=== PATIENT | female | born 1985 | race Caucasian/White ===

== ENCOUNTER 2024-06-22 08:46 | Outpatient (CLI) | payer BC, SELFPAY ==
--- NOTE | 2024-06-22 08:56 | US_ITS ---
PROCEDURE: US TRANSVAGINAL CLINICAL INDICATION: dysmenorrhea COMPARISON: No exams were available for comparison FINDINGS: Transvaginal sonographic images of the pelvis were obtained. UTERUS: 6.7 cm x 5.1cmx 2.7 cm anteverted with a combined endometrial thickness of 7.3mm. Homogeneous appearance of the endometrium. There is a small nabothian cyst in the cervix. LEFT OVARY: [id number] with a volume of 5.8ml. There is a follicle measuring 0.8 cm x 0.7 cm x 0.6 cm. There are multiple small peripheral follicles. RIGHT OVARY: 3cmx [id number] with a volume of 4.6ml. There are multiple small peripheral follicles. Both ovaries are seen and appear normal. Doppler flow to both ovaries are seen. There is no fluid in the cul-de-sac. IMPRESSION: 1. Anteverted uterus normal in shape and size. The endometrium is homogeneous and measures 7.3 mm. 2. Both ovaries are seen and appear normal. There are multiple small peripheral follicles. 3. No fluid in the cul-de-sac. Dictated by: Gennaro Silver MD 06/22/2024 10:35 Gennaro iSlver MD in [place] 06/22/2024 10:35
== END 2024-06-22 23:59 | disposition home or self-care (01) ==
LOC: RAD 08:49
PROVIDERS: PCP Emergency Medicine; Visit Provider Nurse Practitioner Obstetrics & Gynecology
DX: N94.6 Dysmenorrhea, unspecified (principal)
CPT/HCPCS: 76830

== ENCOUNTER 2024-06-29 11:40 | Outpatient (CLI) | payer BC, SELFPAY ==
[2024-06-29 13:28] LABS: HCG,Quantitative 165 mIU/ml (0-5.42)
[2024-06-30 11:19] LABS: Progesterone 24.9 ng/mL (.)
== END 2024-06-29 23:59 | disposition home or self-care (01) ==
LOC: LAB 11:41
PROVIDERS: PCP Emergency Medicine; Visit Provider Obstetrics & Gynecology
DX: Z34.90 Encounter for supervision of normal pregnancy, unspecified, unspecified trimester (principal)
CPT/HCPCS: 36415; 84144; 84702

== ENCOUNTER 2024-07-01 09:34 | Outpatient (CLI) | payer BC, SELFPAY ==
[2024-07-01 10:45] LABS: HCG,Quantitative 395 mIU/ml (0-5.42)
== END 2024-07-01 23:59 | disposition home or self-care (01) ==
LOC: LAB 09:34
PROVIDERS: PCP Emergency Medicine; Visit Provider Obstetrics & Gynecology
DX: Z34.90 Encounter for supervision of normal pregnancy, unspecified, unspecified trimester (principal)
CPT/HCPCS: 36415; 84702

== ENCOUNTER 2024-07-22 13:52 | Outpatient (CLI) | payer BC, SELFPAY ==
[2024-07-22 14:40] LABS: Basophils % 0.5 % (0.1-2.0); Eosinophils # 0.2 K/mm3 (0.0-0.4); Eosinophils % 2.8 % (0.1-12.0); Hematocrit 38.5 % (37.0-47.0); Hemoglobin 12.5 g/dL (12.2-16.2); Lymphocytes # 1.5 K/mm3 (0.7-4.5); Lymphocytes % 24.9 % (10-50); Mean Corpuscular HGB Conc 32.5 g/dL (31.8-35.4); Mean Corpuscular Hemoglobin 32.2 pg (27.0-31.2); Mean Corpuscular Volume 98.9 fl (81-99); Mean Platelet Volume 8.7 fl (7.4-10.4); Monocytes # 0.4 K/mm3 (0.1-1.0); Monocytes % 5.9 % (1.7-9.3); Neutrophils % 65.9 % (37.0-80.0); Platelet Count 240 K/mm3 (142-424); Red Blood Count 3.89 M/mm3 (4.20-5.40); Red Cell Distribution Width 12.4 % (11.5-17.5); White Blood Count 6.1 K/mm3 (4.8-10.8)
[2024-07-23 13:19] LABS: HIV (1&2) Antibody Rapid NONREACTIVE (NONREACTIVE)
[2024-07-24 08:15] LABS: HCV Ab Non Reactive (Non Reactive); Hepatitis B Surface Antigen Negative (Negative)
[2024-07-24 08:20] LABS: Rubella Antibodies, IgG 4.64 index (Immune >0.99)
[2024-07-24 12:14] LABS: Rapid Plasma Reagin Ab Titer Non Reactive titer (NonRea<1:1)
[2024-07-25 07:52] LABS: Neisseria gonorrhoeae, NAA Negative (Negative)
== END 2024-07-22 23:59 | disposition home or self-care (01) ==
LOC: LAB 13:53
PROVIDERS: Visit Provider Obstetrics & Gynecology
DX: Z34.81 Encounter for supervision of other normal pregnancy, first trimester (principal)
CPT/HCPCS: 36415; 85025; 86593; 86762; 86803; 86850; 87086; 87340; 87389; 87491; 87591

== ENCOUNTER 2024-10-26 12:59 | Outpatient (CLI) | payer BC, SELFPAY ==
--- NOTE | 2024-10-26 13:07 | US_ITS ---
PROCEDURE: US OB >= 14 WEEKS FETUS CLINICAL INDICATION: 20 week anatomy COMPARISON: US US TRANSVAGINAL from 06/22/2024 FINDINGS: Transabdominal sonographic images of the pelvis were obtained. From her established due date she is 20 weeks 5 days. Single viable intrauterine gestation. Breech position. Placenta: Posterior and right laterally wrapped placenta grade 1. There is an average amount of fluid. The cervix appears satisfactory. Closed and measuring 4.67 cm in length. Complete survey performed and was unremarkable on the submitted images as in PACS. No discrete anomalies identified on survey imaging by technologist. Active fetus. Three-vessel cord with satisfactory umbilical cord insertion. 4- chamber heart noted. Situs, aortic arch, LVOT, RVOT, three-vessel view appear normal. Survey of brain & ventricles Unremarkable. Cerebellum, thalamus, choroid plexus, cisterna magna appear normal. Face and neck survey unremarkable. Profile, nasion, lips and nose appeared normal. Diaphragm and chest views unremarkable. Abdomen: Both kidneys noted and unremarkable. Stomach and bladder noted and satisfactory. Spine: Survey of the spine satisfactory with no anomalies identified nor imaged. Cervical, thoracic, lower spine appear normal. Both arms and legs noted. Amniotic Fluid: Adequate. MVP 4.48 cm. Measurements: Average ultrasound age 20weeks 6days. Estimated due date by ultrasound age 0403/09/2025. Estimated weight 353g BPD = 21weeks 3days HC = 21weeks 0 days AC = 20weeks 3days FL = 20weeks 3days Growth Percentile= 30 Heart Rate = 139bpm Cerebellum = 19weeks 3days Humerus = 21weeks 1day HC/AC is 1.23 FL/BPD is 0.65 FL/AC is 0.22 IMPRESSION: 1. Viable fetus in the breech presentation with the right laterally wrapped posterior placenta grade 1. 2. The fluid is within normal limits MVP 4.48 cm. 3. Anatomical scan appears normal. 4. biometry is consistent with the dates. Dictated by: Gennaro Silver MD 10/26/2024 16:33 Gennaro Silver MD in [place] 10/26/2024 16:33
== END 2024-10-26 23:59 | disposition home or self-care (01) ==
LOC: RAD 13:00
PROVIDERS: PCP Emergency Medicine; Visit Provider Obstetrics & Gynecology
DX: O09.522 Supervision of elderly multigravida, second trimester (principal); Z3A.20 20 weeks gestation of pregnancy
CPT/HCPCS: 76805

== ENCOUNTER 2024-12-16 14:07 | Outpatient (CLI) | payer OTHER, SELFPAY ==
[2024-12-16 15:26] LABS: Basophils % 0.3 % (0.1-2.0); Eosinophils # 0.1 K/mm3 (0.0-0.4); Eosinophils % 1.2 % (0.1-12.0); Hemoglobin 10.9 g/dL (12.2-16.2); Lymphocytes # 1.2 K/mm3 (0.7-4.5); Lymphocytes % 17.4 % (10-50); Mean Corpuscular HGB Conc 34.1 g/dL (31.8-35.4); Mean Corpuscular Hemoglobin 32.5 pg (27.0-31.2); Mean Corpuscular Volume 95.5 fl (81-99); Mean Platelet Volume 9.5 fl (7.4-10.4); Monocytes # 0.5 K/mm3 (0.1-1.0); Monocytes % 7.4 % (1.7-9.3); Neutrophils % 72.5 % (37.0-80.0); Platelet Count 236 K/mm3 (142-424); Red Blood Count 3.35 M/mm3 (4.20-5.40); Red Cell Distribution Width 12.2 % (11.5-17.5); White Blood Count 6.9 K/mm3 (4.8-10.8)
[2024-12-16 15:38] LABS: Glucose 1 Hour 158 mg/dL (74-100)
[2024-12-16 23:40] LABS: RPR W/RFX Titers Nonreactive (Nonreactive)
== END 2024-12-16 23:59 | disposition home or self-care (01) ==
LOC: LAB 14:09
PROVIDERS: PCP Emergency Medicine; Visit Provider Obstetrics & Gynecology
DX: Z34.90 Encounter for supervision of normal pregnancy, unspecified, unspecified trimester (principal)
CPT/HCPCS: 36415; 82947; 85025; 86592

== ENCOUNTER 2024-12-18 09:13 | Outpatient (CLI) | payer OTHER, SELFPAY ==
[2024-12-18 10:54] LABS: Glucose,Fasting 82 mg/dl (74-100)
[2024-12-18 11:05] LABS: Glucose 1 Hour 123 mg/dL (74-100)
[2024-12-18 12:09] LABS: Glucose 2 Hour 90 mg/dL (74-100)
[2024-12-18 13:12] LABS: Glucose 3 Hour 92 mg/dL (74-100)
== END 2024-12-18 23:59 | disposition home or self-care (01) ==
LOC: LAB 09:14
PROVIDERS: PCP Emergency Medicine; Visit Provider Obstetrics & Gynecology
DX: E74.39 Other disorders of intestinal carbohydrate absorption (principal); O09.529 Supervision of elderly multigravida, unspecified trimester
CPT/HCPCS: 36415; 82951

== ENCOUNTER 2024-12-22 14:26 | Outpatient (CLI) | payer OTHER, SELFPAY ==
[2024-12-22 14:30] VITALS: BP 111/71; PULSE 80; RESP 20; TEMP 37.1; O2SAT 98; BMI 25.2
[2024-12-22 14:34] VITALS: BMI 25.4
[2024-12-22 14:44] LABS: Microscopic, Urine URINE MICROSCOPIC (MICROSCOPIC)
[2024-12-22 14:45] LABS: Appearance,Urine CLEAR (Clear); Bilirubin,Urine Negative (Negative); Blood, Urine 2+ (Negative); Color,Urine YELLOW (Yellow); Glucose,Urine (UA) Negative (Negative); Ketones,Urine Negative (Negative); Leukocyte Esterase,Urine Negative (Negative); Nitrate,Urine Negative (Negative); PH,Urine 7.5 (5.0-8.5); Protein,Urine Negative (Negative); Urobilinogen,Urine 0.2 EU/dl (0.2)
[2024-12-22 14:52] LABS: Bacteria,Urine Trace /lpf
[2024-12-22 14:57] LABS: Amphetamine/Metha Screen,Urine Negative ng/ml (<1000)
[2024-12-22 14:58] LABS: Barbiturates Screen,Urine Negative ng/ml (<200)
[2024-12-22 14:59] LABS: Benzodiazepines Screen,Urine Negative ng/ml (<200); Cannabinoid Screen,Urine Negative ng/ml (<50)
[2024-12-22 15:00] LABS: Cocaine Screen,Urine Negative ng/ml (<300)
[2024-12-22 15:01] LABS: Methadone Screen,Urine Negative ng/ml (<300); Opiate Screen,Urine Negative ng/ml (<300)
[2024-12-22 15:02] LABS: Phencyclidine Screen,Urine Negative ng/ml (<25)
--- NOTE | 2024-12-22 15:05 | US_ITS ---
PROCEDURE: US OB BIOPHYSICAL PROFILE CLINICAL INDICATION: bleeding at 29 weeks COMPARISON: US US TRANSVAGINAL from 06/22/2024 US US OB >= 14 WEEKS FETUS from 10/26/2024 FINDINGS: Transabdominal sonographic images of the uterus were obtained. From her established due date she is 29weeks. The following parameters are obtained: Viable Fetus in the breech presentation initially then cephalic presentation with a right lateral posterior placenta grade 1. No obvious abruption. Cervix measures 4.14-4.40 cm. No obvious reason for her vaginal bleeding. Measurements: heart Rate = 140bpm Amniotic fluid index: 12.27cm, MVP 4.14 cm Qualitative AFV:2 Breathing movements: 2 Gross Body Movements: 2 Tone: 2 Biophysical profile score: 8 No obvious anomalies evident.Kidneys, profile, stomach, bladder, four-chamber heart, three-vessel cord appear normal. IMPRESSION: 1. Viable fetus in the breech then cephalic presentation with a right lateral posterior placenta grade 1. No obvious abruption. 2. Cervix measures 4.14-4.40 cm. 3. The fluid is within normal limits with amniotic fluid index 12.27 cm, MVP 4.14 cm. 4. Biophysical profile is 8/8 with good breathing movement and movement seen. 5. Limited anatomical scan appears normal. Dictated by: Gennaro Silver MD 12/22/2024 16:35 Gennaro Silver MD in [place] 12/22/2024 16:35
== END 2024-12-22 16:50 | disposition home or self-care (01) ==
LOC: OBOUT 14:28 → OB 14:28
PROVIDERS: Visit Provider Nurse Practitioner Obstetrics & Gynecology
DX: O46.93 Antepartum hemorrhage, unspecified, third trimester (principal); Z3A.29 29 weeks gestation of pregnancy
CPT/HCPCS: 76819; 80307; 81001; G0463

== ENCOUNTER 2025-01-21 14:02 | Outpatient (CLI) | payer OTHER, SELFPAY ==
--- NOTE | 2025-01-21 14:03 | US_ITS ---
PROCEDURE: US OB BIOPHYSICAL PROFILE CLINICAL INDICATION: BPP/Growth secondary to AMA COMPARISON: US US OB >= 14 WEEKS FETUS from 10/26/2024 US US OB BIOPHYSICAL PROFILE from 12/22/2024 FINDINGS: Transabdominal sonographic images of the uterus were obtained. From her established due date she is 33weeks 2days. The following parameters are obtained: Viable Fetus in the breech presentation with a right lateral placenta grade 2. Average ultrasound age is 31weeks 6days Estimated weight 1,804g The cervix measures 3.87 cm-4.58 cm. Measurements: heart Rate = 138bpm BPD = 31weeks 5days, 8 percentile HC = 32weeks 3days, 4 percentile AC = 31weeks 3days, 8 percentile FL = 31weeks 5days, 7 percentile HC/AC is 1.07 FL/BPD is 0.77 FL/AC is 0.22 7 percentile Amniotic fluid index: 10.51cm, MVP 3.81 cm. Qualitative AFV:2 Breathing movements: 2 Gross Body Movements: 2 Tone: 2 Biophysical profile score: 8 Doppler evaluation of the umbilical artery: SD ratio: 2.79 Resistive index: 0.64 No obvious anomalies evident.Kidneys, profile, bladder, stomach, four-chamber heart, Three-vessel cord appear normal. IMPRESSION: 1. Viable fetus in the breech presentation with a right lateral placenta grade 2. 2. The fluid is within normal limits with an amniotic fluid index 10.51 cm, MVP 3.1 cm. 3. Biophysical profile is 8/8 with good breathing movement and movement seen. 4. SD ratio is normal. 5. There has been a falling off of the growth with the fetus currently measuring 7th percentile. 6. Limited anatomical scan appears normal. Dictated by: Gennaro Silver MD 01/21/2025 19:28 Gennaro Silver MD in [place] 01/21/2025 19:28
== END 2025-01-21 23:59 | disposition home or self-care (01) ==
PROVIDERS: Visit Provider Obstetrics & Gynecology
DX: O09.523 Supervision of elderly multigravida, third trimester (principal); Z87.59 Personal history of other complications of pregnancy, childbirth and the puerperium; O99.343 Other mental disorders complicating pregnancy, third trimester; F41.9 Anxiety disorder, unspecified; O36.5930 Maternal care for other known or suspected poor fetal growth, third trimester, not applicable or unspecified; Z3A.33 33 weeks gestation of pregnancy
CPT/HCPCS: 76816; 76819

== ENCOUNTER 2025-02-05 14:00 | Outpatient (CLI) | payer OTHER, SELFPAY | END 2025-02-05 23:59 | disposition home or self-care (01) | LOC: LAB.DROPOF 02-06 11:12 | PROVIDERS: PCP Obstetrics & Gynecology; Visit Provider Obstetrics & Gynecology | DX: O36.5930 Maternal care for other known or suspected poor fetal growth, third trimester, not applicable or unspecified (principal); Z3A.35 35 weeks gestation of pregnancy | CPT/HCPCS: 86403 ==

== ENCOUNTER 2025-02-09 08:55 | Outpatient (CLI) | payer OTHER, SELFPAY ==
--- NOTE | 2025-02-09 09:09 | US_ITS ---
PROCEDURE: US OB BIOPHYSICAL PROFILE CLINICAL INDICATION: BPP, SD Ratio with GORDON Advanced maternal age COMPARISON: US US TRANSVAGINAL from 06/22/2024 US US OB >= 14 WEEKS FETUS from 10/26/2024 US US OB BIOPHYSICAL PROFILE from 12/22/2024 US US OB BIOPHYSICAL PROFILE from 01/21/2025 US US OB FOLLOW UP from 02/09/2025 FINDINGS: Transabdominal sonographic images of the uterus were obtained. From her established due date she is 36weeks 0 days. The following parameters are obtained: Viable Fetus in the breech presentation with right laterally wrapped placenta grade 2. Cervix measures 3.46 cm Measurements: heart Rate = 140bpm Amniotic fluid index: 12.95cm, MVP 3.95 cm. Qualitative AFV:2 Breathing movements: 2 Gross Body Movements: 2 Tone: 2 Biophysical profile score: 8 Doppler evaluation of the umbilical artery: SD ratio: 1.77-2.09 Resistive index: 0.44 No obvious anomalies evident.Kidneys, stomach, bladder, four-chamber heart, three-vessel cord appear normal. IMPRESSION: 1. Viable fetus in the breech presentation with a right laterally wrapped placenta grade 2. 2. The fluid is within normal limits with amniotic fluid index 12.95 cm, MVP 3.95 cm. 3. Biophysical profile is 8/8 with good breathing movement and movement seen. 4. SD ratio normal 1.77-2.09. 5. Limited anatomical scan appears normal. Dictated by: Gennaro Silver MD 02/09/2025 10:52 Gennaro Silver MD in [place] 02/09/2025 10:52
== END 2025-02-09 23:59 | disposition home or self-care (01) ==
LOC: RAD 08:56
PROVIDERS: PCP Emergency Medicine; Visit Provider Obstetrics & Gynecology
DX: O09.523 Supervision of elderly multigravida, third trimester (principal); O36.5930 Maternal care for other known or suspected poor fetal growth, third trimester, not applicable or unspecified; Z3A.36 36 weeks gestation of pregnancy; Z87.59 Personal history of other complications of pregnancy, childbirth and the puerperium
CPT/HCPCS: 76819; 76820

== ENCOUNTER 2025-02-18 14:47 | Outpatient (CLI) | payer OTHER, SELFPAY ==
--- NOTE | 2025-02-18 15:00 | US_ITS ---
PROCEDURE: US OB BIOPHYSICAL PROFILE CLINICAL INDICATION: Needs on 02/18/25 Symmetric IGUR/AMA COMPARISON: US US OB >= 14 WEEKS FETUS from 10/26/2024 US US OB BIOPHYSICAL PROFILE from 12/22/2024 US US OB BIOPHYSICAL PROFILE from 01/21/2025 US US OB BIOPHYSICAL PROFILE from 02/09/2025 FINDINGS: Transabdominal sonographic images of the uterus were obtained. From her established due date she is 37weeks 2days. The following parameters are obtained: Viable Fetus in the breech presentation with a right lateral placenta grade 2. Average ultrasound age is 35weeks 1day Estimated weight 2,711g, 6 lb 0 oz Cervix measures 2.98 cm-3.11 cm when measured transvaginally Measurements: heart Rate = 132bpm BPD = 34weeks 3days, 4 percentile HC = 34weeks 5days, <2 percentile AC = 36weeks 4days, 43 percentile FL = 34weeks 4day, 3 percentile s HC/AC is 0.95 FL/BPD is 0.79 FL/AC is 0.21 17 percentile Amniotic fluid index: 12.97cm, MVP 5.29 cm Qualitative AFV:2 Breathing movements: 2 Gross Body Movements: 2 Tone: 2 Biophysical profile score: 8 Doppler evaluation of the umbilical artery: SD ratio: 2.03-2.82. Resistive index: 0.51 No obvious anomalies evident.Kidneys, profile, stomach, bladder, four-chamber heart, three-vessel cord appear normal. IMPRESSION: 1. Viable fetus in the breech presentation with a right lateral placenta grade 2. 2. The fluid is within normal limits with an amniotic fluid index 12.97 cm, MVP 5.29 cm. 3. Biophysical profile is 8/8 with good breathing movement and movement seen. 4. There has been good interval growth with the fetus currently 17th percentile. 5. The head and femur length were small for gestational age. The abdominal circumference is normal. Somewhat difficult exam to get proper measurements due to position. 6. SD ratio is normal at 2.03-2.82. 7. Limited anatomical scan appears normal. Dictated by: Gennaro Silver MD 02/18/2025 15:56 Gennaro Silver MD in [place] 02/18/2025 15:56
--- OUTSIDE RECORDS SUMMARY | 2025-02-18 23:37 | XMS_ITS ---
Author Organization Unknown Plan of Treatment Description Planned Activity Planned Timing Tariq Alvarenga has registered and consented to medical care with [employer] s virtual maternal- care program, through benefits provided by their employer or health plan. Our practice care model is designed to support patients and their primary care team in optimizing maternal and health by reducing risk factors, addressing care gaps, and expanding equitable access to care.Our multidisciplinary team of certified healthcare professionals include an experienced team of maternal- care registered nurses, dietitians, specialists, mental health specialists, certified nurse midwives, nurse practitioners, physician associates, neonatologists, and BACK HAND physicians. We offer comprehensive risk reducing services including 24/7 urgent care, medical education, mental health support/therapy, and consultation.[employer] will reach out to Tariq at least monthly to check-in on their health throughout the duration of their period. We can be contacted by phone at [phone], or by email at [email or web address] with any questions or concerns. Patient Care team information Name Category Status Period Participants - - Proposed period not known - - - Proposed period not known -
== END 2025-02-18 23:59 | disposition home or self-care (01) ==
LOC: RAD 14:48
PROVIDERS: PCP Obstetrics & Gynecology; Visit Provider Obstetrics & Gynecology
DX: O09.523 Supervision of elderly multigravida, third trimester (principal); O36.5930 Maternal care for other known or suspected poor fetal growth, third trimester, not applicable or unspecified; O99.343 Other mental disorders complicating pregnancy, third trimester; F41.9 Anxiety disorder, unspecified; Z3A.37 37 weeks gestation of pregnancy
CPT/HCPCS: 76816; 76819; 76820

== ENCOUNTER 2025-02-25 13:05 | Outpatient (CLI) | payer OTHER, SELFPAY ==
--- NOTE | 2025-02-25 13:00 | US_ITS ---
PROCEDURE: US OB BIOPHYSICAL PROFILE CLINICAL INDICATION: Needs 02/25/25 for IGUR COMPARISON: No exams were available for comparison FINDINGS: Transabdominal sonographic images of the uterus were obtained. From her established due date she is 38weeks 2days. The following parameters are obtained: Viable Fetus in the breech presentation with a right lateral placenta grade 2-3. The cervix measures 3.0 cm Measurements: heart Rate = 130bpm Amniotic fluid index: 21.62cm, MVP 8.34 cm Qualitative AFV:2 Breathing movements: 2 Gross Body Movements: 2 Tone: 2 Biophysical profile score: 8 Doppler evaluation of the umbilical artery: SD ratio: 1.95-2.14 Resistive index: 0.49 No obvious anomalies evident.Kidneys, stomach, bladder, four-chamber heart, three-vessel cord appear normal. IMPRESSION: 1. Viable fetus in the BREECH presentation with a right lateral placenta grade 2-3. 2. The amniotic fluid index is 21.62 cm. MVP is 8.34 cm which meets the criteria for mild polyhydramnios. 3. Biophysical profile is 8/8 with good breathing movement and movement seen. 4. SD ratio is normal 1.95-2.14. 5. Limited anatomical scan appears normal. Dictated by: Gennaro Silver MD 02/25/2025 17:39 Gennaro Silver MD in [place] 02/25/2025 17:39
--- OUTSIDE RECORDS SUMMARY | 2025-02-25 13:10 | XMS_ITS ---
Author Organization Unknown Plan of Treatment Description Planned Activity Planned Timing Tariq Alvarenga has registered and consented to medical care with [employer] s virtual maternal- care program, through benefits [...] midwives, nurse practitioners, physician associates, neonatologists, and TREER physicians. We offer comprehensive risk reducing services including 24/7 urgent care, medical education, mental health support/therapy, and consultation.[employer] will reach out to Tariq at least monthly to check-in on their health throughout the duration of their period. We can be contacted by phone at [phone], or by email at [email or web address] with any questions or concerns. Patient Care team information Name Category Status Period Participants - - Proposed period not known - - - Proposed period not known -
== END 2025-02-25 23:59 | disposition home or self-care (01) ==
LOC: RAD 13:06
PROVIDERS: PCP Emergency Medicine; Visit Provider Obstetrics & Gynecology
DX: O36.5990 Maternal care for other known or suspected poor fetal growth, unspecified trimester, not applicable or unspecified (principal)
CPT/HCPCS: 76819; 76820

== ENCOUNTER 2025-03-05 05:17 | Inpatient (IN) | payer OTHER, SELFPAY ==
[2025-03-05] VITALS (7 sets, daily range): BP systolic 111–124; BP diastolic 56–77; PULSE 59–75; RESP 14–18; TEMP 36.1–36.6; O2SAT 98–100; BMI 27.5
--- OUTSIDE RECORDS SUMMARY | 2025-03-05 05:19 | XMS_ITS ---
Author Organization Unknown Plan of Treatment Description Planned Activity Planned Timing Tariq Alvarenga has registered and consented to medical care with [employer] s virtual maternal- care program, through benefits [...] midwives, nurse practitioners, physician associates, neonatologists, and MACHINE CHAIN MAKER physicians. We offer comprehensive risk reducing services including 24/7 urgent care, medical education, mental health support/therapy, and consultation.[employer] will reach out to Tariq at least monthly to check-in on their health throughout the duration of their period. We can be contacted by phone at [phone], or by email at [email or web address] with any questions or concerns. Patient Care team information Name Category Status Period Participants - - Proposed period not known - - - Proposed period not known -
[2025-03-05] MEDS: LACTATED RINGERS 1000ML 1,000 ML 250 ML IV (05:50)
[2025-03-05 06:14] LABS: Microscopic, Urine URINE MICROSCOPIC (MICROSCOPIC)
[2025-03-05 06:18] LABS: Basophils % 0.3 % (0.1-2.0); Eosinophils # 0.1 Kmm3 (0.0-0.4); Eosinophils % 1.2 % (0.1-12.0); Hematocrit 34.4 % (37.0-47.0); Hemoglobin 11.6 g/dL (12.2-16.2); Lymphocytes # 1.6 K/mm3 (0.7-4.5); Mean Corpuscular HGB Conc 33.7 g/dL (31.8-35.4); Mean Corpuscular Volume 94.8 fl (81-99); Mean Platelet Volume 10.1 fl (7.4-10.4); Monocytes # 0.6 K/mm3 (0.1-1.0); Monocytes % 10.7 % (1.7-9.3); Neutrophils # 3.5 K/mm3 (1.8-7.8); Neutrophils % 60.1 % (37.0-80.0); Nucleated Red Blood Cells # 0 10^3/uL; Nucleated Red Blood Cells % 0 %; Platelet Count 241 K/mm3 (142-424); Red Blood Count 3.63 M/mm3 (4.20-5.40); Red Cell Distribution Width 13.2 % (11.5-17.5); Red Cell Distribution Width-SD 45.5 fL; White Blood Count 5.8 K/mm3 (4.8-10.8)
[2025-03-05 06:28] LABS: Chloride 109 mmol/L (98-107)
[2025-03-05 06:28] LABS: Appearance,Urine CLEAR (Clear); Bilirubin,Urine Negative (Negative); Blood, Urine Negative (Negative); Color,Urine YELLOW (Yellow); Glucose,Urine (UA) Negative (Negative); Ketones,Urine Negative (Negative); Leukocyte Esterase,Urine Negative (Negative); Nitrate,Urine Negative (Negative); Protein,Urine Negative (Negative); Specific Gravity, Urine 1.025 (1.005-1.030); Urobilinogen,Urine 0.2 EU/dl (0.2)
[2025-03-05 06:29] LABS: Albumin Level 3.2 g/dl (3.5-5.0); Potassium 3.9 mmoL/L (3.5-5.1); Sodium 133 mmol/L (136-145)
[2025-03-05 06:31] LABS: Blood Urea Nitrogen 10 mg/dl (7-17); Creatinine Clearance Estimated 138 mL/min (50-200); Estimated Glomerular Filt Rate 93 ml/min (>60); GFR (African American) 112 ML/MIN (>60)
[2025-03-05 06:32] LABS: Alanine Aminotransferase 20 U/L (12-78); Albumin/Globulin Ratio 0.9 (1.1-1.8); Alkaline Phosphatase 181 U/L (38-126); Anion Gap 6.9 mEq/L (5-15); Aspartate Amino Transferase 33 U/L (14-36); Bilirubin,Total 0.3 mg/dl (0.2-1.3); Calcium 8.5 mg/dl (8.4-10.2); Carbon Dioxide 21 mmol/L (22.0-30.0); Globulin 3.4 g/dL (1.3-3.2); Glucose 74 mg/dl (74-100); Total Protein,Serum 6.6 g/dl (6.3-8.2)
[2025-03-05 07:14] LABS: Bacteria,Urine Trace /lpf
[2025-03-05] MEDS: CEFAZOLIN SODIUM 2 GM in 0.9 % SODIUM CHLORIDE 100 ML IV ×3 (07:16→23:22)
--- NOTE | 2025-03-05 07:17 | P.HP_ITS ---
OB - H&P: HPI Antepartum History of Present Illness Chief complaint: Scheduled primary History of present illness: Ms Tariq Alvarenga is a 39 yo at 39w2d who presents to [facility] L&D for scheduled primary secondary to breech presentation. She has had good care. Baby is active. History of Present Criteria for establishing EDC:: LMP confirmed by 1st trimester US care: good care Ultrasounds: normal mid trimester US Obstetrical complications: other (Advanced maternal age) Labs Blood type: O (+) positive Rubella: immune RPR/VDRL: nonreactive HBsAG: negative [facility] Disclaimer: The information contained in this section may have been updated after the patient was seen, as this information can be updated by other users. Medical History (Updated 03/01/25 @ 12:03 by Lina Rodas DO) Breech presentation Anxiety during , antepartum AMA (advanced maternal age) multigravida 35+ Family history of breast cancer in first degree relative History of miscarriage Dysmenorrhea Hx of migraines History of depression History of anxiety Surgical History No significant past surgical history Family History Other Cancer Coronary artery disease Social History Smoking Status: Never smoker alcohol intake: former current occupational status: employed Travel in the last 8 weeks: None Have you lived/traveled outside US in past 30 days?: No Contact w/someone who lives/traveled outside US past 30 days?: No Exposure to someone with infectious disease in past 14 days?: No Do you have a fever (greater than 100.4 F or 38 C)?: No Have you tested positive for COVID-19: No Exposed to someone with COVID-19 in past 14 days?: No Do you have a sore throat?: No Do you have a cough?: No Do you have any weakness?: No Do you have any diarrhea?: No Are you experiencing any unusual bleeding?: No Do you have any muscle aches/pain?: No Do you have any abdominal pain?: No Are you experiencing loss of taste or smell?: No Other Medical History Have you received the Flu Vaccine for this season: No Have you received the Pneumonia Vaccine: No Review of Systems Review of Systems Review of systems:: pertinent systems reviewed and negative unless documented below Meds Home Medications and Allergies Home Medications ?Medication ?Instructions ?Recorded ?Confirmed ?Type escitalopram oxalate 10 mg tablet 10 mg PO DAILY 06/18/24 03/01/25 History sumatriptan succinate 50 mg tablet See Rx Instructions PO .COMPLEX 06/18/24 03/01/25 History (Imitrex) vits no.126-ferrous fum 1 tab PO DAILY 07/22/24 03/01/25 History 28 mg iron-folic acid 800 mcg tablet (Classic ) New Prescriptions to Start Prescriptions: Allergies Allergy/AdvReac Type Severity Reaction Status Date / Time No Known Allergies Allergy Verified 03/01/25 10:08 OB - H&P: Exam Physical Exam Vital signs: Temp Pulse Resp BP Pulse Ox O2 Del Method 97.9 F 75 16 112/77 99 Room Air 03/05/25 06:05 03/05/25 06:05 03/05/25 06:05 03/05/25 06:05 03/05/25 06:05 03/05/25 06:05 Constitutional no acute distress and cooperative Routine HEENT Exam Head: Present normocephalic and atraumatic Eye: Absent conjunctivae pink ENT: Present mucous membranes moist Routine Neck Exam Present full ROM Routine Respiratory Exam Present CTA bilaterally and normal respiratory effort Routine Cardiovascular Exam Present RRR Routine Abdominal Exam Present soft (Gravid); Absent tenderness Routine Rectal Exam Patient deferred: visual exam Routine Exam External: Present normal urethra appearance; Absent erythema, swelling, tenderness or lacerations Comments: + vulvar varicose veins Routine Extremities Exam Present full ROM; Absent edema or calf tenderness Comments: + bilateral lower extremity varicose veins Routine Neurological Exam Present alert, moving all extremities and normal speech Routine Psychiatric Exam Present normal affect and cooperative OB - Results Labs Labs: Short CBC 03/05/25 Range/Units 05:44 WBC 5.8 (4.8-10.8) K/mm3 Hgb 11.6 L (12.2-16.2) g/dL Hct 34.4 L (37.0-47.0) % Plt Count 241 (142-424) K/mm3 [facility] 03/05/25 05:44 Sodium 133 L Potassium 3.9 Chloride 109 H Carbon Dioxide 21 L BUN 10 Creatinine 0.70 Glucose 74 Calcium 8.5 Liver Function 03/05/25 Range/Units 05:44 Total Bilirubin 0.3 (0.2-1.3) mg/dl AST 33 (14-36) U/L ALT 20 (12-78) U/L Alkaline Phosphatase 181 H (38-126) U/L Albumin 3.2 L (3.5-5.0) g/dl Urine 03/05/25 Range/Units 05:45 Urine Color Yellow (Yellow) Urine Appearance Clear (Clear) Urine pH 6.0 (5.0-8.5) Ur Specific [place] 1.025 (1.005-1.030) Urine Protein Negative (Negative) Urine Glucose (UA) Negative (Negative) OB - A/P Antepartum (1) Breech presentation: Status: Acute (2) AMA (advanced maternal age) multigravida 35+: Status: Acute (3) Anxiety during , antepartum: Status: Acute Additional Plan Planning to breastfeed?: Yes Additional Information:: Admit to [facility] for scheduled primary secondary to breech presentation Bedside ultrasound this morning confirmed baby is still breech Reviewed risks, benefits, alternatives, expectations and possible complications. All questions addressed and answered. She voiced understanding of risks and possible complications. Consent form signed. Proceed with scheduled primary
--- NOTE | 2025-03-05 08:35 | P.CONPHA_ITS ---
Pharmacy Intervention Comments: MEDICATION RECONCILIATION COMPLETED ON PATIENT USING EXTERNAL FILL HISTORY FROM PHARMACY AND LIST FROM [employer]ENT OFFICE. -QUINTIN BUENOD
--- NOTE | 2025-03-05 08:35 | HMH.PHAINT1 ---
Pharmacy Intervention Comments: MEDICATION RECONCILIATION COMPLETED ON PATIENT USING EXTERNAL FILL HISTORY FROM PHARMACY AND LIST FROM [facility] OFFICE. -QUINTIN BUENOD
--- NOTE | 2025-03-05 08:44 | EXP.ANES.CKL ---
[facility] Disclaimer: The information contained in this section may have been updated after the patient was seen, as this information can be updated by other users. Medical History (Updated 03/01/25 @ 12:03 by Lina Rodas DO) Breech presentation Anxiety during , antepartum AMA (advanced maternal age) multigravida 35+ Family history of breast cancer in first degree relative History of miscarriage Dysmenorrhea Hx of migraines History of depression History of anxiety Surgical History No significant past surgical history Family History Other Cancer Coronary artery disease Social History Smoking Status: Never smoker alcohol intake: former substance use type: denies use current occupational status: employed Travel in the last 8 weeks: None [facility] Anesthesia Checklist Patient Identification Patient Identification: Arm Band and Verbal (Name & ) Structural Data Admitted From: Home Planned Operative Procedure/s: Consent for Planned Operative Procedure(s) Verified: Yes Verified Documents: Surgical Consent NPO Status Verified Time NPO: 00:00 Chart Verification Results Verified: None Additional verifications Patient : Yes Anesthesia Reactions: No Hx Blood Transfusions: No Blood Transfusion Reaction: No Cephalosporin Allergy: No Previous Colonoscopy: No Airway Assessment Mallampati Score:: Class I C-Spine Mobility Assessed: No TMJ Mobility Assessed: No Dentition: Good Dentition Neurological Assessment Level of Consciousness: Awake, Alert and Appropriate Anesthesia Plan Anesthesia Risk discussed: Yes Anesthesia Plan: Verified ASA Class: I Anesthesia Type: Spinal
--- NOTE | 2025-03-05 08:48 | EXP.ANES.I ---
[facility] Anesthesia Record Part I Anesthesia Record I Intake, IV Amount: 2,000 Hydration: Adequate Estimated blood loss (mL): 900 Urine output (mL): 0 Blood Products used (#): none Blood Pressure: 111/56 SaO2: 100 Pulse Rate: 66 Airway Patency: Patent Respiratory Rate: 14 Temperature: 97.0 F Patient is:: Awake and Stable Stable to PACU at:: 08:39
--- NOTE | 2025-03-05 09:03 | P.OP_ITS ---
Date of procedure: 03/05/25 Pre-op Diagnosis:: 1. IUP at 39w2d 2. Breech presentation 3. AMA 4. Maternal anxiety Post-op Diagnosis:: 1. IUP at 39w2d 2. Breech presentation 3. AMA 4. Maternal anxiety Procedure performed:: Primary Low Transverse Section Surgeon:: Lina Rodas DO Fuel Cell Repairer(s):: Peri Nguyen DO ORDER CONTROL CLERK BLOOD BANK:: Other (Moreno Cheng CRNA) Anesthesia: spinal Estimated blood loss (mL): 900 Clinical Note:: Ms Tariq Alvarenga is a 39 yo at 39w2d who presents to [facility] L&D for scheduled primary secondary to breech presentation. She has had good care. Baby is active. Operative findings:: 1. Live female baby (name undecided at this time) APGARs 7 (1 min), 9 (5 min) 2. Grossly normal appearing uterus, bilateral fallopian tubes and ovaries Operative note:: The risks, benefits and alternatives of the procedure were reviewed with the patient. Informed consent was obtained. Patient was taken to the operating room where spinal anesthesia was placed. The patient received 2 grams of Ancef preoperatively. Patient was placed in dorsal supine position with a leftward tilt. SCDs in place. Diaz catheter was inserted and draining clear urine prior to the start of the procedure. heart tones were obtained. Patient was then prepped and draped in normal sterile fashion. Allis clamp test was performed to ensure adequate anesthesia. A Pfannenstiel skin incision was made 2 cm above pubic symphysis. This was carried through to underlying layer of fascia. Fascia was incised in midline, extended laterally with Mack scissors. Superior aspect of fascial incision was grasped with two Kerrie clamps, elevated up, and rectus muscle dissected off bluntly and sharply with Mack scissors. Inferior aspect of fascial incision was grasped with two Kerrie clamps, elevated up, and rectus muscle dissected off bluntly and sharply with Mack scissors. The retcus muscle was then in the midline and the peritoneum was entered bluntly with a digit. Peritoneal incision was then extended superiorly and inferiorly with good visualization of the bladder. Noah retractor was inserted. The lower uterine segment was incised in a transverse fashion. Clear amniotic fluid was noted. Baby was single footling breech presentation. Baby was delivered using standard breech delivery techniques. Nuchal x 2 was easily reduced. Mouth and nares were bulb suctioned. Spontaneous cry was noted. Delayed cord clamping was performed for 60 seconds. The umbilical cord was clamped and cut. The was handed to awaiting pediatric staff in stable condition. Apgars were 7 (1 min), 9 (5 min). Cord blood was obtained. Gentle traction on the umbilical cord and uterine fundal massage delivered the placenta. Placenta was intact. Placenta will be sent to pathology for review. Uterus was cleared of all clots and debris with a moist laparotomy sponge. Corners of the uterine incision were grasped with Allis clamps. The uterine incision was reapproximated with # 1 Vicryl suture in a running, locked stitch. Second layer of the same stitch was used to imbricate the incision. Vesicouterine peritoneum was reapproximated in a running locked stitch with 0- Vicryl suture. Hemostasis was noted. Posterior cul-de-sac was cleaned with moist laparotomy sponge. Gutters cleared of all clots and debris with a moist laparotomy sponge. Reinspection of the lower uterine segment demonstrated excellent hemostasis. At this point all instruments and sponges were removed from the pelvis.? The peritoneum was grasped with Trice clamps x 3. The peritoneum was reapproximated with 0 Vicryl suture in a running stitch. Small amount of oozing noted on right rectus muscle. Surgicel powder applied to muscle. Hemostasis noted. The corners of the fascia were grasped with Kerrie clamps, and the fascia was reapproximated with two # 1 Vicryl suture overlapped to the right of midline. Subcutaneous tissue was irrigated with clear return of fluids. The subcutaneous tissue was reapproximated with 3-0 Vicryl. The skin was reapproximated with Insorb franklyn. Steri strips and Telfa was placed over closed Pfannenstiel skin incision. At the end of the procedure, the uterus was firm with minimal vaginal bleeding. Patient tolerated the procedure well. Instrument, sponges and needle counts were correct x 2. Mom and baby were transported to recovery room in stable condition. Condition: stable Disposition: floor Specimens:: 1. Placenta and umbilical cord Complications:: None
[2025-03-05] MEDS: ACETAMINOPHEN 500MG TAB 1000 MG PO ×3 (09:24→21:29)
[2025-03-05] MEDS: LACTATED RINGERS 1000ML 1,000 ML 125 ML IV (09:25)
[2025-03-05] MEDS: OXYTOCIN/RINGERS LACTATE 30 UNITS/500 ML BAG 40 UNITS IV (09:27)
[2025-03-05] MEDS: OXYCODONE 5MG IMMEDIATE RELEASE TABLET 5 MG PO ×2 (13:59→20:06)
[2025-03-05] MEDS: KETOROLAC 30MG/ML VIAL 30 MG IV ×2 (14:08→20:07)
[2025-03-05 15:38] LABS: RPR W/RFX Titers Nonreactive (Nonreactive)
[2025-03-06] MEDS: OXYCODONE 5MG IMMEDIATE RELEASE TABLET 5 MG PO ×4 (00:48→20:36)
[2025-03-06] MEDS: KETOROLAC 30MG/ML VIAL 30 MG IV (02:03)
[2025-03-06] MEDS: ACETAMINOPHEN 500MG TAB 1000 MG PO ×3 (05:23→20:37)
[2025-03-06] MEDS: IBUPROFEN 400 MG TABLET 800 MG PO ×2 (07:34→16:47)
[2025-03-06 08:09] LABS: Basophils % 0.4 % (0.1-2.0); Eosinophils # 0.1 Kmm3 (0.0-0.4); Eosinophils % 0.6 % (0.1-12.0); Hematocrit 28.3 % (37.0-47.0); Hemoglobin 9.4 g/dL (12.2-16.2); Lymphocytes # 1.7 K/mm3 (0.7-4.5); Lymphocytes % 21.2 % (10-50); Mean Corpuscular HGB Conc 33.2 g/dL (31.8-35.4); Mean Corpuscular Hemoglobin 32.4 pg (27.0-31.2); Mean Corpuscular Volume 97.6 fl (81-99); Mean Platelet Volume 9.9 fl (7.4-10.4); Monocytes # 0.5 K/mm3 (0.1-1.0); Monocytes % 6.6 % (1.7-9.3); Neutrophils # 5.8 K/mm3 (1.8-7.8); Neutrophils % 70.6 % (37.0-80.0); Nucleated Red Blood Cells # 0 10^3/uL; Nucleated Red Blood Cells % 0 %; Platelet Count 174 K/mm3 (142-424); Red Cell Distribution Width 13.3 % (11.5-17.5); Red Cell Distribution Width-SD 47.4 fL; White Blood Count 8.2 K/mm3 (4.8-10.8)
[2025-03-06 09:55] VITALS: BP 113/78; PULSE 61; RESP 18; TEMP 36.9; O2SAT 98
--- NOTE | 2025-03-06 11:22 | P.PN_ITS ---
Subjective *Date: 03/06/25 *Time: 11:22 Interval history: POD # 1 s/p PLTCS secondary to breech presentation Feeling well. Pain controlled. Breast feeding. Lochia is appropriate. Voiding without difficulty and passing flatus. Tolerating regular diet. Denies fever/chills, chest pain and shortness of breath. No headaches, vision changes, lightheadedness/dizziness. She admits to lower extremity swelling. No calf pain. Ambulating well ad angeli. Medical Exam Vital signs and Labs for Last 24 Hours: Laboratory Results - last 24 hr 03/05/25 05:44: RPR w/Rflx to Titer Nonreactive 03/06/25 07:55: WBC 8.2 D, RBC 2.90 L, Hgb 9.4 L, Hct 28.3 L, MCV 97.6, MCH 32.4 H, MCHC 33.2, RDW 13.3, Plt Count 174 D, MPV 9.9, Neut % (Auto) 70.6, Lymph % (Auto) 21.2, [place] % (Auto) 6.6, Eos % (Auto) 0.6, Baso % (Auto) 0.4, Neut # (Auto) 5.8, Lymph # (Auto) 1.7, [place] # (Auto) 0.5, Eos # (Auto) 0.1, Baso # (Auto) 0.0 I & O for Labs for Last 24 Hours: Intake & Output 03/03/25 03/04/25 03/05/25 03/06/25 23:59 23:59 23:59 23:59 Intake Total 1999 Balance 1999 Weight 181 lb Head: Present atraumatic and normocephalic ENT: Present mucous membranes moist Neck: Present full ROM Respiratory: Present CTA bilaterally and normal respiratory effort Cardiac: Present Reg Rate and Rhythm GI: Present soft; Absent tenderness or guarding Comments:: Uterine fundus firm and below umbilicus, pfannenstiel incision clean/dry/intact with steri strips in place Rectal (female): Present deferred (female): Present deferred Extremities: Present full ROM and edema (+1 bilateral lower extremity edema); Absent calf tenderness Neuro: Present alert, awake and moves all extremities Assessment and Plan *Assessment and plan (1) S/P : Status: Acute Category: Surgical Code(s): Z98.891 - History of uterine scar from previous surgery (2) Breech presentation: Status: Acute Qualifiers: Fetus number: single or unspecified fetus Qualified Code(s): O32.1XX0 - Maternal care for breech presentation, not applicable or unspecified Category: Medical Code(s): O32.1XX0 - Maternal care for breech presentation, not applicable or unspecified (3) AMA (advanced maternal age) multigravida 35+: Status: Acute Qualifiers: Trimester: second trimester Qualified Code(s): O09.522 - Supervision of elderly multigravida, second trimester Category: Medical Code(s): O09.529 - Supervision of elderly multigravida, unspecified trimester (4) Anxiety during , antepartum: Status: Acute Category: Medical Code(s): O99.340 - Other mental disorders complicating , unspecified trimester; F41.9 - Anxiety disorder, unspecified (5) Acute blood loss anemia: Status: Acute Category: Medical Code(s): D62 - Acute posthemorrhagic anemia Plan Continue routine care Encouraged increased ambulation AM hgb 9.4 - venofer 200 mg IV x 1 dose Plan d/c home POD # 2
[2025-03-06] MEDS: IRON SUCROSE COMPLEX 200 MG in 0.9 % SODIUM CHLORIDE 100 ML 220 MG IV (11:44)
[2025-03-06] MEDS: PRENATAL MULTIVITAMIN W/IRON 1 EACH PO (16:47)
[2025-03-06 20:30] VITALS: BP 125/76; PULSE 62; RESP 18; TEMP 36.9; O2SAT 97
--- NOTE | 2025-03-07 00:39 | PC.NURSE ---
RN to bedside for NST. Baseline 135bpm with accels noted. No decels noted. Ctx pattern is q1-4mins lasting 40-60secs. Ctc palpated mild and soft between ctx. SVE performed. Unchanged from last SVE. See mecial record for EFM tracing.
[2025-03-07] MEDS: OXYCODONE 5MG IMMEDIATE RELEASE TABLET 5 MG PO ×2 (02:11→09:08)
[2025-03-07] MEDS: IBUPROFEN 400 MG TABLET 800 MG PO ×2 (02:11→09:56)
[2025-03-07 04:40] VITALS: BP 125/79; PULSE 56; RESP 16; TEMP 36.5; O2SAT 100
[2025-03-07] MEDS: ACETAMINOPHEN 500MG TAB 1000 MG PO ×2 (04:42→09:57)
[2025-03-07] MEDS: ESCITALOPRAM 10MG TABLET 10 MG PO (09:15)
--- NOTE | 2025-03-07 10:59 | EXP.DC.SUM ---
General Admission date:: 03/05/25 Discharge date: 03/07/25 HPI HPI HPI: POD # 2 s/p PLTCS Feeling well. Pain controlled. Breast feeding. Lochia is light. Voiding without difficulty and passing flatus. Tolerating regular diet. Denies fever/chills, chest pain and shortness of breath. No headaches, vision changes, lightheadedness/dizziness. She admits to lower extremity swelling. No calf pain. Ambulating well ad angeli. Hospital Course Hospital Course Hospital Course: Ms Tariq Alvarenga is a 39 yo at 39w2d who presents to [facility] L&D for scheduled primary secondary to breech presentation. She has had good care. Baby is active. She underwent a primary on 03/05/25. She delivered a live female baby, Mckenzie, weighing 7 lb 4 oz. APGARs 7 (1 min), 9 (5 min). EBL 900 mL. She did well /postoperatively. Pain controlled. Breast feeding. Light lochia. Voiding without difficulty and passing flatus. Tolerating regular diet. Denies fever/chills, chest pain and shortness of breath. No headaches, dizziness/lightheadedness or vision changes. Vital signs stable, afebrile. Heart regular rate and rhythm. Lungs clear to auscultation. Abdomen soft, nontender. She had +1 bilateral lower extremity swelling. No calf pain. Ambulating well ad angeli. POD # 1 AM hgb 9.4. She received Venofer 200 mg IV x 1 dose on POD # 1. Normal hospital course. She was discharged to home on POD # 2 with instructions to follow-up in the office in 2 weeks or sooner if needed. Exam Data for Last 24 hours Vital signs and Labs for Last 24 Hours: Temp Pulse Resp BP Pulse Ox O2 Del Method 97.7 F 56 L 16 125/79 100 Room Air 03/07/25 04:40 03/07/25 04:40 03/07/25 04:40 03/07/25 04:40 03/07/25 04:40 03/07/25 04:40 I & O for Last 24 hours: Intake & Output 03/04/25 03/05/25 03/06/25 03/07/25 23:59 23:59 23:59 23:59 Intake Total 1999 Balance 1999 Weight 181 lb Constitutional Constitutional: no acute distress and cooperative *Routine HEENT Exam Head: Present normocephalic and atraumatic Eye: Absent conjunctivae pink ENT: Present mucous membranes moist *Routine Neck Exam Neck: Present full ROM *Routine Respiratory Exam Respiratory: Present CTA bilaterally and normal respiratory effort *Routine Cardiovascular Exam Cardiovascular: Present RRR *Routine Abdominal Exam Abdominal: Present soft; Absent tenderness or distended Comments: Pfannenstiel incision clean/dry/intact with steri strips in place *Routine Rectal Exam Patient deferred: visual exam *Routine Exam Patient deferred: external exam *Routine Extremities Exam Extremities: Present edema (+1 bilateral lower extremity edema ) and full ROM; Absent calf tenderness *Routine Neurological Exam Neurological: Present alert, moving all extremities and normal speech Routine Psychiatric Exam Psychiatric: Present normal affect and cooperative DS: Diagnosis Discharge Diagnosis (1) S/P : Status: Acute Code(s): Z98.891 - History of uterine scar from previous surgery (2) Breech presentation: Status: Acute Code(s): O32.1XX0 - Maternal care for breech presentation, not applicable or unspecified Qualifiers: Fetus number: single or unspecified fetus Qualified Code(s): O32.1XX0 - Maternal care for breech presentation, not applicable or unspecified (3) AMA (advanced maternal age) multigravida 35+: Status: Acute Code(s): O09.529 - Supervision of elderly multigravida, unspecified trimester Qualifiers: Trimester: second trimester Qualified Code(s): O09.522 - Supervision of elderly multigravida, second trimester (4) Anxiety during , antepartum: Status: Acute Code(s): O99.340 - Other mental disorders complicating , unspecified trimester; F41.9 - Anxiety disorder, unspecified (5) Acute blood loss anemia: Status: Acute Code(s): D62 - Acute posthemorrhagic anemia Meds Home Medications and Allergies Home Medications ?Medication ?Instructions ?Recorded ?Confirmed ?Type vits no.126-ferrous fum 1 tab PO DAILY 07/22/24 03/05/25 History 28 mg iron-folic acid 800 mcg tablet (Classic ) escitalopram oxalate 10 mg tablet 10 mg PO DAILY 03/05/25 03/05/25 History ibuprofen 800 mg tablet 800 mg PO Q8H PRN pain #20 tabs 03/06/25 Rx oxycodone 5 mg tablet 5 mg PO Q6H PRN pain #20 tabs 03/06/25 Rx New Prescriptions to Start Prescriptions: Lina Anguiano oxycodone Lina Rodas Allergies Allergy/AdvReac Type Severity Reaction Status Date / Time No Known Allergies Allergy Verified 03/01/25 10:08 Discharge Plan Disposition Patient Disposition: Home, Self-Care Condition: Good Discharge Order Discharge Orders: Discharge Order (Routine); Ordered 03/07/25 Ordered By: Lina Rodas Follow up Plan Follow up with: Lina Rodas DO [Staff Physician] - 03/19/25 9:30 am Prescriptions/Medication Reconciliation: New ibuprofen 800 mg tablet 800 mg PO Q8H PRN (Reason: pain) Qty: 20 0RF oxycodone 5 mg tablet 5 mg PO Q6H PRN (Reason: pain) Qty: 20 0RF Continued Classic 28 mg iron- 800 mcg tablet 1 tab PO DAILY escitalopram oxalate 10 mg Tablet 10 mg PO DAILY Problem Reconciliation Problems Reviewed?: Yes Patient Discharge Instructions ACTIVITY: Limited activity DIET: continue same diet and regular diet Additional Instructions: Congratulations!! Discharge: 1. Take 800 mg Ibuprofen every 8 hours as needed for pain. You can also take 500-1000 mg of Tylenol in between doses, every 6-8 hours. If pain persists you can take Oxycodone 5 mg, 1 tablet every 4-6 hours or more as needed. 2. Nothing in the vagina for 6 weeks - no intercourse, douching or tampons. No tub baths/hot tubs or swimming pools 3. No lifting anything heavier than baby in pumpkin seat for 6 weeks. No driving for 1 week or while taking narcotic pain medication. 4. Reasons to return to L&D or call On-Call doctor - fever (greater than 100.4) - heavy vaginal bleeding (soaking through 1 pad in less than 2 hours) - vaginal discharge (malodorous and/or purulent) - severe headaches not resolved by medication or rest 4. depression/blues - Normal to feel anxious/overwhelmed for first 2 weeks - Talk to your doctor if: severe anxiety, trouble bonding with baby, withdrawing from other family members, thoughts of harming yourself or others Lina Rodas DO [facility] [phone] Patient Instructions: Depression, Hemorrhage, DI for , DI for Pre-eclampsia, [facility] Post Discharge Instructions Print Language: Sami Providers Primary Care Provider: Blanche Frank Admit Provider: Lina Rodas Attending Provider: Lina Rodas
[2025-03-08 14:28] VITALS: BP 124/72; PULSE 64; RESP 17; TEMP 36.3; O2SAT 100
--- NOTE | 2025-03-08 14:28 | EXP.ANES.II ---
[facility] Anesthesia Record Part II Anesthesia Record Part II Discharge Time: 09:10 Destination: Obstetric PACU nurse assessment reviewed?: Yes Patient Condition:: Good Anesthesia Complications:: None Swallowing reflex intact?: Yes Airway Patency: Patent Cyanosis?: No Blood Pressure: 124/72 SaO2: 100 Respiratory Rate: 17 Pulse Rate: 64 Temperature: 97.3 F Mental Status: Alert & Oriented Pain level:: 0 Nausea and/or vomitting:: None Intake, IV Amount: 0 Hydration: Adequate
== END 2025-03-07 13:45 | disposition home or self-care (01) | DRG 787 ==
PROVIDERS: Admitting Provider Obstetrics & Gynecology; PCP Emergency Medicine; Visit Provider Obstetrics & Gynecology
PROC: 10D00Z1 Extraction of Products of Conception, Low, Open Approach (ICD-10-PCS; CPT 59514; principal; 2025-03-05 07:30)
DX: O32.1XX0 Maternal care for breech presentation, not applicable or unspecified (principal); D62 Acute posthemorrhagic anemia; Z3A.39 39 weeks gestation of pregnancy; Z37.0 Single live birth; O99.02 Anemia complicating childbirth; O99.344 Other mental disorders complicating childbirth; F41.9 Anxiety disorder, unspecified
CPT/HCPCS: 36415; 59025; 80053; 81001; 85025; 86592; 86850; 94761; G0283; J0666; J1100; J1756; J1885; J2405; J3010; J7120

== ENCOUNTER 2025-03-10 18:00 | Emergency (ER) | payer OTHER, SELFPAY ==
--- NOTE | 2025-03-10 18:02 | [facility].EDGENADL ---
Discharge Plan Disposition Patient Disposition: Home, Self-Care Prescriptions Prescriptions: No Action Classic 28 mg iron- 800 mcg tablet 1 tab PO DAILY escitalopram oxalate 10 mg Tablet 10 mg PO DAILY ibuprofen 800 mg tablet 800 mg PO Q8H PRN (Reason: pain) Qty: 20 0RF oxycodone 5 mg tablet 5 mg PO Q6H PRN (Reason: pain) Qty: 20 0RF Referrals Follow up/Referrals: Blanche Frank MD [Primary Care Provider] - See instructions Activity Restrictions/Add. Instructions Additional Instructions/Restrictions: Follow-up with primary care doctor. Recommend compression stockings. Please return to the ER with any new, concerning, or worsening symptoms. Clinical Impressions Clinical Impression: Left leg swelling Print Language Print Language: Croatian Discharge ED Provider: Tres Schuler General Adult HPI General Chief complaint: PAIN Stated complaint: left leg swollen and sore,with numbness Time Seen by Provider: 03/10/25 18:02 Mode of Arrival: Ambulatory Source of Information: Patient Limitations: No Limitations History of Present Illness HPI narrative: This is a 39-year-old female status post delivery on Saturday presenting with left lower leg swelling. States that she has chronic varicose veins however she has been experiencing some occasional numbness and tingling of her left lower leg as well as asymmetrical edema compared to her right for the last couple weeks. States that it has worsened after delivery. States that she is supposed to wear compression stockings but she often does not. Denies any fever. Denies any other symptoms. Related Data Home Medications ?Medication ?Instructions ?Recorded ?Confirmed vits no.126-ferrous fum 1 tab PO DAILY 07/22/24 03/05/25 28 mg iron-folic acid 800 mcg tablet (Classic ) escitalopram oxalate 10 mg tablet 10 mg PO DAILY 03/05/25 03/05/25 Previous Rx's ?Medication ?Instructions ?Recorded ibuprofen 800 mg tablet 800 mg PO Q8H PRN pain #20 tabs 03/06/25 oxycodone 5 mg tablet 5 mg PO Q6H PRN pain #20 tabs 03/06/25 Allergies Allergy/AdvReac Type Severity Reaction Status Date / Time No Known Allergies Allergy Verified 03/01/25 10:08 [facility] Disclaimer: The information contained in this section may have been updated after the patient was seen, as this information can be updated by other users. Medical History (Updated 03/10/25 @ 18:20 by Tres Schuler MD) Acute blood loss anemia Breech presentation Anxiety during , antepartum AMA (advanced maternal age) multigravida 35+ Family history of breast cancer in first degree relative History of miscarriage Dysmenorrhea Hx of migraines History of depression History of anxiety Surgical History (Updated 03/06/25 @ 11:24 by Lina Rodas DO) S/P No significant past surgical history Family History Other Cancer Coronary artery disease Social History Smoking Status: Never smoker alcohol intake: former substance use type: denies use current occupational status: employed Travel in the last 8 weeks?: None Have you lived/traveled outside [place] in past 30 days?: No Contact w/someone who lives/traveled outside US past 30 days?: No Exposure to someone with infectious disease in past 14 days?: No Do you have a fever (greater than 100.4 F or 38 C)?: No Have you tested positive for COVID-19?: No Exposed to someone with COVID-19 in past 14 days?: No Do you have a sore throat?: No Do you have a cough?: No Do you have any weakness?: No Do you have any diarrhea?: No Are you experiencing any unusual bleeding?: No Do you have any muscle aches/pain?: No Do you have any abdominal pain?: No Are you experiencing loss of taste or smell?: No Other Medical History Have you received the Flu Vaccine for this season: No Have you received the Pneumonia Vaccine: No ROS Obtained: Yes All systems reviewed & no additional complaints except as documented Physical Exam General General appearance: alert and in no apparent distress Head Head exam: atraumatic Eye Eye exam: Present normal appearance, PERRL and EOMI Neck Neck exam: Present normal inspection and full ROM Chest Chest inspection: Present symmetric chest wall rise Respiratory Respiratory exam: Present normal lung sounds bilaterally; Absent respiratory distress Cardiovascular Cardiovascular exam: Present regular rate and normal rhythm Abdominal Exam Abdominal exam: Present soft; Absent distention Extremities Exam Extremities exam: Present other (Slightly increased edema of left lower extremity compared to right. Varicose veins present. Slightly diminished sensation of the left leg over the foot and lateral thigh compared to the right.) Neurological Exam Neurological exam: Present alert and oriented X3 Psychiatric Psychiatric exam: Present normal affect and normal mood Skin Skin exam: Present warm and dry Medical Decision Making Medical Records Medical records reviewed: Yes I reviewed the patient's medical records. Screening: Per USPSTF and CDC recommendations, given the prevalence of disease in our region, it is our hospital?s policy to screen for HIV and viral Hepatitis for all patients aged 18 and over and those with ongoing risk factors. Skyler Inquiry Pt receiving controlled substance: No Vital Signs: 03/10/25 18:13 Temperature 98.0 F Temperature Source Oral Pulse Rate [Left Radial] 61 Respiratory Rate 19 Blood Pressure [Right Arm] 139/89 Blood Pressure Mean [Right Arm] 105 02 Sat by Pulse Oximetry 98 Oxygen Delivery Method Room Air Orders (Tests/Meds): ORDERS Category Date Time Status POCUS Point of Care (ER Only) Stat Exams 03/10/25 18:02 Ordered Medical Decision Narrative: In summary, this 39-year-old female status post delivery on 03/05 presents to the emergency department today with left leg swelling. On initial evaluation patient is afebrile, hemodynamically stable, nontoxic-appearing. Differential diagnosis includes but is not limited to DVT, sciatica, dependent edema, varicose veins. I performed [id number] ultrasound at bedside revealing no evidence of DVT in the left lower extremity. Patient was appropriate for discharge with PCP follow-up. Suspect that her symptoms may be in the setting of her varicose veins which were quite severe. Recommended wearing compression stockings and following up with PCP. May need MRI of the lumbar spine if symptoms persist, however she is not experiencing any back pain at this time. No chest pain, shortness of breath, fever, or other constitutional symptoms. Critical Care Critical Care Time Critical Care Time: No
--- OUTSIDE RECORDS SUMMARY | 2025-03-10 18:06 | XMS_ITS ---
Author Organization Unknown Plan of Treatment Description Planned Activity Planned Timing Tariq Alvarenga has registered and consented to medical care with [facility] virtual maternal- care program, through benefits [...] midwives, nurse practitioners, physician associates, neonatologists, and FRONT DESK MANAGER physicians. We offer comprehensive risk reducing services including 24/7 urgent care, medical education, mental health support/therapy, and consultation.[employer] will reach out to Tariq at least monthly to check-in on their health throughout the duration of their period. We can be contacted by phone at [phone], or by email at [email or web address] with any questions or concerns. Patient Care team information Name Category Status Period Participants - - Proposed period not known - - - Proposed period not known -
[2025-03-10 18:13] VITALS: BP 139/89; PULSE 61; RESP 19; TEMP 36.7; O2SAT 98; BMI 25.8
[2025-03-10 18:23] VITALS: BP 135/80; PULSE 96; RESP 19; TEMP 36.9; O2SAT 96
== END 2025-03-10 18:24 | disposition home or self-care (01) ==
PROVIDERS: Emergency Provider Student in an Organized Health Care Education/Training Program; PCP Emergency Medicine
DX: R22.42 Localized swelling, mass and lump, left lower limb (principal); I83.812 Varicose veins of left lower extremity with pain
CPT/HCPCS: 99284

== ENCOUNTER → 2025-03-22 09:48 | Outpatient (CLI) | payer OTHER, SELFPAY ==
--- NOTE | 2025-03-22 10:45 | PC.NURSE ---
Pt assisted with getting the NB latched. Pt educated on not allowing the NB to have a shallow latcha, and should break the latch and try re latching with the Nbs upper and lower lips flanged outward. When the NB is latching properly the pt is having minimal pain with initial latch that resolves after a few minutes.
== END ==
LOC: OBOUT 09:49
PROVIDERS: PCP Emergency Medicine; Visit Provider Obstetrics & Gynecology
DX: Z39.1 Encounter for care and examination of lactating mother (principal)